=== PATIENT | female | born 1965 | race Caucasian/White ===

== ENCOUNTER → 2016-11-07 | Outpatient (CLI) | payer MEDICAID ==
--- NOTE | 2016-11-07 11:32 | BD ---
EXAMINATION TYPE: MG DEXA axial skeleton. DATE OF EXAM: 11/07/2016 10:50 AM COMPARISON: NONE CLINICAL HISTORY: Height: 5 FT 7 IN Weight: 202 FRAX RISK QUESTIONS: Alcohol (3 or more units per day): YES Family History (Parent hip fracture): NO Glucocorticoids (More than 3mos): NO (Ex: prednisone, prednisolone, methylprednisolone, dexamethasone, and hydrocortisone). History of Fracture in Adulthood: NO Secondary Osteoporosis: 1. Type 1 Diabetes: NO 2. Hyperthyroidism: NO 3. Menopause before 45: NO 4. Malnutrition: NO 5. Chronic liver disease: NO Rheumatoid Arthritis: NO Current Tobacco Use: NO RISK FACTORS HISTORY OF: Drink Alcohol: YES Active: YES Postmenopausal woman: PART HYST AGE 39 MEDICATIONS: Additional Medications: LISINOPRIL,HYDROCHLOROTHIAZIDE,SIMVASTATIN, ARIMIDEX, Additional History: BREAST CANCER 2016 CHEMO AND RADIATION EXAM MEASUREMENTS: Bone mineral densitometry was performed using the Catarizm System. Bone mineral density as measured about the Lumbar spine is: ----- L1-L4(G/cm2): 1.387 T Score Values are as follows: ----- L2: 1.9 ----- L3: 2.0 ----- L4: 2.3 ----- L1-L4: 1.7 Bone mineral density has: BASELINE Bone mineral density about the R hip (g/cm2): 1.064 Bone mineral density about the L hip (g/cm2): 1.144 T Score values are as follows: -----R Neck: 0.2 -----L Neck: 0.8 -----R Intertrochanter: 0.6 -----L Intertrochanter: 1.4 Bone mineral density has: BASELINE IMPRESSION: Normal (Values between +1 and -1 indicate normal bone mass) [facility] NOTE: T-SCORE=SD OF THE YOUNG ADULT MEAN.
== END ==
LOC: RADBDWWP 10:07
PROVIDERS: ATTEND Internal Medicine Hematology & Oncology
DX: C50.919 Malignant neoplasm of unspecified site of unspecified female breast (principal)
CPT/HCPCS: 77080

== ENCOUNTER → 2017-03-21 | Outpatient (CLI) | payer MEDICAID ==
--- NOTE | 2017-03-24 09:19 | MM ---
Reason for exam: follow-up at short interval from prior study. Last mammogram was performed 1 year ago. History: Patient is postmenopausal, has history of breast cancer at age 50, and has history of other cancer at age 28. Family history of breast cancer in maternal aunt. Malignant MG pre op needle loc RT of the right breast, March 22, 2016. Malignant US biopsy breast VAD RT of the right breast, March 08, 2016. Physical Findings: Nurse did not find any significant physical abnormalities on exam. MG 3D Diag Mammo W/Cad REBECCA Bilateral CC and MLO view(s) were taken. Prior study comparison: March 08, 2016, right breast MG diagnostic mammo RT wo CAD. March 05, 2016, bilateral MG 3d diag mammo wo cad REBECCA. The breast tissue is heterogeneously dense. This may lower the sensitivity of mammography. Post surgical changes in the right breast. No significant new findings when compared with previous films. These results were verbally communicated with the patient and result sheet given to the patient on 03/21/17. ASSESSMENT: Benign, BI-RAD 2 RECOMMENDATION: Routine screening mammogram of both breasts in 1 year.
== END | disposition home or self-care (01) ==
LOC: RADMAMWWP 08:50
PROVIDERS: ATTEND Radiology Radiation Oncology
DX: Z09 Encounter for follow-up examination after completed treatment for conditions other than malignant neoplasm (principal); Z85.3 Personal history of malignant neoplasm of breast
CPT/HCPCS: G0204; G0279

== ENCOUNTER 2017-07-02 15:00 | Inpatient (IN) | payer MEDICAID ==
--- NOTE | 2017-07-02 14:34 | CT ---
EXAMINATION TYPE: CT abdomen pelvis w con DATE OF EXAM: 07/02/2017 COMPARISON: NONE HISTORY: Diverticulitis CT DLP: 1523.8 mGycm Automated exposure control for dose reduction was used. CONTRAST: CT scan of the abdomen pelvis is performed with IV Contrast, patient injected with 100 mL of Omnipaqu e 300. FINDINGS- LUNG BASES- No significant abnormality is appreciated. LIVER/GB- No gross abnormality is appreciated. PANCREAS- No gross abnormality is seen. SPLEEN- No gross abnormality is seen. ADRENALS- No gross abnormality is seen. KIDNEYS/BLADDER- no hydronephrosis nephrolithiasis or renal mass. BOWEL-there is significant pericolonic inflammation involving the sigmoid colon and left colon. No ev idence of abscess. Adjacent diverticula noted in the finding is most likely related to diverticulitis . There is a cyst trace amount of free fluid in the pelvis. Follow up to resolution recommended to ex clude underlying mucosal lesion. LYMPH NODES- No greater than 1cm abdominal or pelvic lymph nodes are appreciated. OSSEOUS STRUCTURES-mild hypertrophic changes noted. There is a vague osseous lesion of L1 which is no nspecific may be related to small hemangioma. OTHER- aorta of normal caliber. No definite free air. IMPRESSION- 1. Significant amount of pericolonic inflammation involving the sigmoid colon and left colon with adj acent diverticula in a pattern most typical of acute diverticulitis with no evidence of abscess. Trac e amount of free fluid in the pelvis. Follow to resolution to exclude underlying mucosal lesion.
[2017-07-02] MEDS ORDERED: PANTOPRAZOLE 40 MG/10 ML VIAL IVP STA (15:15)
[2017-07-02] MEDS ORDERED: SODIUM CHLORIDE 0.9% 1,000 ML IV STA (15:15)
[2017-07-02] MEDS ORDERED: MORPHINE SULFATE 10 MG/ML SYRINGE IV STA (15:15)
[2017-07-02] MEDS ORDERED: ONDANSETRON 4 MG/2 ML VIAL IVP STA (15:15)
--- NOTE | 2017-07-02 15:18 | ED ---
General Adult HPI - General Chief complaint: Abdominal Pain Time Seen by Provider: 07/02/17 15:14 Source: patient, RN notes reviewed Mode of arrival: wheelchair Limitations: no limitations - History of Present Illness Initial comments: Patient is a pleasant 51-year-old female presenting to the emergency department with abdominal discomfort. Patient had some symptoms close to 2 weeks ago. Symptoms seem to worsen the last few days. Patient has had some chills and nausea. No vomiting. Patient has abdominal discomfort, mostly left lower abdomen. No constipation or diarrhea or mucus or blood. Patient did have outpatient computed tomography scan done and patient was advised to come to the emergency department. - Related Data Home Medications Medication Instructions Recorded Confirmed Hydrochlorothiazide [Hydrodiuril] 25 mg PO QAM 03/19/16 07/02/17 Lisinopril [Zestril] 10 mg PO QAM 03/19/16 07/02/17 Montelukast [Singulair] 10 mg PO QAM 03/19/16 07/02/17 Simvastatin [Simvastatin] 20 mg PO QAM 03/19/16 07/02/17 Anastrozole [Arimidex] 1 mg PO DAILY 07/02/17 07/02/17 Ciprofloxacin HCl [Cipro] 500 mg PO Q12HR 07/02/17 07/02/17 metroNIDAZOLE [Flagyl] 500 mg PO Q8H 07/02/17 07/02/17 Allergies Allergy/AdvReac Type Severity Reaction Status Date / Time No Known Allergies Allergy Verified 07/02/17 15:05 Review of Systems ROS Statement: Those systems with pertinent positive or pertinent negative responses have been documented in the HPI. ROS Other: All systems not noted in ROS Statement are negative. Constitutional: Reports: chills Eyes: Denies: eye pain ENT: Denies: ear pain Respiratory: Denies: cough Cardiovascular: Denies: chest pain Endocrine: Denies: fatigue Gastrointestinal: Reports: abdominal pain, nausea. 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 History of Any Multi-Drug Resistant Organisms: None Reported Past Surgical History: Hysterectomy Additional Past Surgical History / Comment(s): D & C, RIGHT BREAST BX. Past Anesthesia/Blood Transfusion Reactions: No Reported Reaction Past Psychological History: No Psychological Hx Reported Smoking Status: Never smoker Past Alcohol Use History: Occasional Past Drug Use History: None Reported - Past Family History Mother Family Medical History: No Reported History General Exam Limitations: no limitations General appearance: alert Head exam: Present: atraumatic Eye exam: Present: normal appearance, PERRL ENT exam: Present: normal oropharynx Neck exam: Present: normal inspection Respiratory exam: Present: normal lung sounds bilaterally Cardiovascular Exam: Present: regular rate, normal rhythm Expanded Peripheral pulses: 2+: Dorsalis Pedis (R), Dorsalis Pedis (L) GI/Abdominal exam: Present: soft, tenderness (Moderate tenderness left lower quadrant. Mild diffuse tenderness.), guarding, normal bowel sounds. Absent: distended, rebound, rigid, pulsatile mass Extremities exam: Present: normal inspection. Absent: pedal edema, calf tenderness Neurological exam: Present: alert Psychiatric exam: Present: normal affect, normal mood Skin exam: Present: normal color Course Vital Signs 07/02/17 07/02/17 14:56 15:55 Temperature 99.2 F Pulse Rate 78 91 Respiratory 18 18 Rate Blood Pressure 159/92 144/99 O2 Sat by Pulse 97 99 Oximetry Medical Decision Making - Medical Decision Making Case was discussed with Dr. Ellis, who will admit for Dr. Mathews. Consult with GI. Box and Karli. - Lab Data Result diagrams: 07/02/17 15:28 07/02/17 15:28 Lab Results 07/02/17 07/02/17 07/02/17 Range/Units 15:28 15:28 15:28 WBC 11.3 H (3.8-10.6) k/uL RBC 4.28 (3.80-5.40) m/uL Hgb 12.8 (11.4-16.0) gm/dL Hct 38.1 (34.0-46.0) % MCV 89.1 (80.0-100.0) fL MCH 29.8 (25.0-35.0) pg MCHC 33.5 (31.0-37.0) g/dL RDW 12.8 (11.5-15.5) % Plt Count 324 (150-450) k/uL Neutrophils % 74 % Lymphocytes % 11 % Monocytes % 11 % Eosinophils % 0 % Basophils % 0 % Neutrophils # 8.3 H (1.3-7.7) k/uL Lymphocytes # 1.2 (1.0-4.8) k/uL Monocytes # 1.2 H (0-1.0) k/uL Eosinophils # 0.1 (0-0.7) k/uL Basophils # 0.0 (0-0.2) k/uL PT (9.0-12.0) sec INR (<1.2) APTT (22.0-30.0) sec Sodium 136 L (137-145) mmol/L Potassium 3.7 (3.5-5.1) mmol/L Chloride 101 (98-107) mmol/L Carbon Dioxide 25 (22-30) mmol/L Anion Gap 10 mmol/L BUN 13 (7-17) mg/dL Creatinine 0.60 (0.52-1.04) mg/dL Est GFR (MDRD) Af Amer >60 (>60 ml/min/1.73 sqM) Est GFR (MDRD) Non-Af >60 (>60 ml/min/1.73 sqM) Glucose 84 (74-99) mg/dL Plasma Lactic Acid Karlo 0.6 L (0.7-2.0) mmol/L Calcium 9.6 (8.4-10.2) mg/dL Total Bilirubin 0.9 (0.2-1.3) mg/dL AST 13 L (14-36) U/L ALT 29 (9-52) U/L Alkaline Phosphatase 106 (38-126) U/L Total Protein 6.8 (6.3-8.2) g/dL Albumin 3.8 (3.5-5.0) g/dL Amylase 34 (30-110) U/L Lipase 65 (23-300) U/L Urine Color Urine Appearance (Clear) Urine pH (5.0-8.0) Ur Specific [place] (1.001-1.035) Urine Protein (Negative) Urine Glucose (UA) (Negative) Urine Ketones (Negative) Urine Blood (Negative) Urine Nitrite (Negative) Urine Bilirubin (Negative) Urine Urobilinogen (<2.0) mg/dL Ur Leukocyte Esterase (Negative) Urine WBC (0-5) /hpf Ur Squamous Epith Cells (0-4) /hpf Urine Bacteria (None) /hpf 07/02/17 07/02/17 Range/Units 15:28 15:28 WBC (3.8-10.6) k/uL RBC (3.80-5.40) m/uL Hgb (11.4-16.0) gm/dL Hct (34.0-46.0) % MCV (80.0-100.0) fL MCH (25.0-35.0) pg MCHC (31.0-37.0) g/dL RDW (11.5-15.5) % Plt Count (150-450) k/uL Neutrophils % % Lymphocytes % % Monocytes % % Eosinophils % % Basophils % % Neutrophils # (1.3-7.7) k/uL Lymphocytes # (1.0-4.8) k/uL Monocytes # (0-1.0) k/uL Eosinophils # (0-0.7) k/uL Basophils # (0-0.2) k/uL PT 12.2 H (9.0-12.0) sec INR 1.2 H (<1.2) APTT 24.3 (22.0-30.0) sec Sodium (137-145) mmol/L Potassium (3.5-5.1) mmol/L Chloride (98-107) mmol/L Carbon Dioxide (22-30) mmol/L Anion Gap mmol/L BUN (7-17) mg/dL Creatinine (0.52-1.04) mg/dL Est GFR (MDRD) Af Amer (>60 ml/min/1.73 sqM) Est GFR (MDRD) Non-Af (>60 ml/min/1.73 sqM) Glucose (74-99) mg/dL Plasma Lactic Acid Karlo (0.7-2.0) mmol/L Calcium (8.4-10.2) mg/dL Total Bilirubin (0.2-1.3) mg/dL AST (14-36) U/L ALT (9-52) U/L Alkaline Phosphatase (38-126) U/L Total Protein (6.3-8.2) g/dL Albumin (3.5-5.0) g/dL Amylase (30-110) U/L Lipase (23-300) U/L Urine Color Colorless Urine Appearance Clear (Clear) Urine pH 6.0 (5.0-8.0) Ur Specific [place] 1.022 (1.001-1.035) Urine Protein Negative (Negative) Urine Glucose (UA) Negative (Negative) Urine Ketones Negative (Negative) Urine Blood Negative (Negative) Urine Nitrite Negative (Negative) Urine Bilirubin Negative (Negative) Urine Urobilinogen <2.0 (<2.0) mg/dL Ur Leukocyte Esterase Trace H (Negative) Urine WBC 8 H (0-5) /hpf Ur Squamous Epith Cells 7 H (0-4) /hpf Urine Bacteria Rare H (None) /hpf - Radiology Data Radiology results: report reviewed Disposition Clinical Impression: Diverticulitis Disposition: ADMITTED IP TO THIS [facility] Referrals: Adam Cornell MD [STAFF PHYSICIAN] - 1-2 days Decision Time: 16:18
[2017-07-02 15:42] LABS: Basophils % (A) 0 %; CH 30.4; CHCM 34.3; Eosinophils # (A) 0.1 k/uL (0-0.7); Eosinophils % (A) 0 %; HCT 38.1 % (34.0-46.0); HDW 2.62; HGB 12.8 gm/dL (11.4-16.0); Luc # (Auto) 0.46; Luc % (Auto) 4; Lymphocytes # (A) 1.2 k/uL (1.0-4.8); Lymphocytes % (A) 11 %; MCH 29.8 pg (25.0-35.0); MCHC 33.5 g/dL (31.0-37.0); MCV 89.1 fL (80.0-100.0); Mean Platelet Volume 6.6; Monocytes # (A) 1.2 k/uL (0-1.0); Monocytes % (A) 11 %; Neutrophils # (A) 8.3 k/uL (1.3-7.7); Neutrophils % (A) 74 %; RBC 4.28 m/uL (3.80-5.40); RDW 12.8 % (11.5-15.5); WBC 11.3 k/uL (3.8-10.6); WBC (Perox) 11.13
[2017-07-02 15:50] LABS: ALT 29 U/L (9-52); AST 13 U/L (14-36); Alkaline Phosphatase 106 U/L (38-126); Amylase 34 U/L (30-110); Anion Gap 10 mmol/L; Blood Urea Nitrogen 13 mg/dL (7-17); Calcium 9.6 mg/dL (8.4-10.2); Carbon Dioxide 25 mmol/L (22-30); Chloride 101 mmol/L (98-107); Glucose 84 mg/dL (74-99); Non-African American GFR(MDRD) >60 (>60 ml/min/1.73 sqM); Potassium 3.7 mmol/L (3.5-5.1); Sodium 136 mmol/L (137-145); Total Bilirubin 0.9 mg/dL (0.2-1.3); Total Protein 6.8 g/dL (6.3-8.2)
[2017-07-02 15:52] LABS: Appearance,Urine Clear (Clear); Bacteria,Urine Rare /hpf; Bilirubin,Urine Negative (Negative); Glucose,Urine (UA) Negative (Negative); Ketones,Urine Negative (Negative); Leukocyte Esterase,Urine Trace (Negative); Nitrite,Urine Negative (Negative); Particle Count 882; Protein,Urine Negative (Negative); Specific Gravity,Urine 1.022 (1.001-1.035); Squamous Epithelial Cell,Urine 7 /hpf (0-4); UA Billing (MACRO vs. MICRO) MICRO; Urobilinogen,Urine <2.0 mg/dL (<2.0); WBC,Urine 8 /hpf (0-5)
[2017-07-02 15:54] LABS: INR 1.2 (<1.2); Partial Thromboplastin Time 24.3 sec (22.0-30.0); Prothrombin Time 12.2 sec (9.0-12.0)
[2017-07-02] MEDS ORDERED: NALOXONE 0.4 MG/ML 1 ML VIAL IV PRN (16:18)
[2017-07-02] MEDS ORDERED: MORPHINE SULFATE 10 MG/ML SYRINGE IV PRN (16:18)
[2017-07-02] MEDS ORDERED: LEVOFLOXACIN 750MG-D5W PMX 750 MG in DEXTROSE/WATER 1 150ML.BAG IVPB STA (16:20)
[2017-07-02] MEDS: SODIUM CHLORIDE 0.9% 1,000 ML IV SCH ×2 (16:52→23:43)
--- NOTE | 2017-07-02 17:49 | P.HPIM ---
History of Present Illness H&P Date: 07/02/17 Chief Complaint: abdominal pain Ms Morrow patient of of Dr. Mathews with past medical history of breast cancer status post chemo and radiation, hyperlipidemia, hypertension, asthma presents with increasing abdominal pain for the past 3 days. Patient saw her primary care physician yesterday who recommended antibiotics including ciprofloxacin and Flagyl. Since abdominal pain did not improve and patient was endorsing nausea, CT abdomen was ordered which suggested significant amount of pericolonic inflammation including sigmoid colon and the left colon suggestive of acute diverticulitis. Patient endorses 8/10 pain in the left upper quadrant and lower quadrant worsening with movement, constant agonizing in character. Patient denies any fever but endorses chills and nausea. She had no bowel movement for the past 4 days. Denies any fever previous history of similar complaints. Vitals are stable, afebrile blood pressure 159/92 pulse rate 78. CBC suggest WBC of 11.3, INR 1.2, sodium of 136 with no sign of infection on urinalysis. Patient was started on levofloxacin and Flagyl and IV fluids were started, gastroenterology consulted, patient would need pain control with IV pain medication. Review of Systems Constitutional: Denies chills, Denies fever, Denies lethargy, Denies malaise, Denies poor appetite, Denies weakness, Denies weight loss Eyes: denies decreased vision, denies diplopia, denies discharge, denies pain Ears: deny: decreased hearing Ears, nose, mouth and throat: Denies dental pain, Denies headache, Denies nasal discharge, Denies nose pain Cardiovascular: Denies chest pain, Denies decreased exercise tolerance, Denies edema, Denies high blood pressure, Denies irregular heart beat, Denies palpitations, Denies paroxysmal nocturnal dyspnea, Denies rapid heart beat, Denies shortness of breath Respiratory: Denies congestion, Denies cough, Denies cough with sputum, Denies dyspnea, Denies home oxygen, Denies wheezing Gastrointestinal: Endorses abdominal pain, endorses change in bowel habits, Denies coffee ground emesis, Denies early satiety, Denies excessive gas, Denies heartburn, Denies hematemesis, Denies hematochezia, Denies loss of appetite, endorses nausea, Denies vomiting Genitourinary: Denies dysuria, Denies flank pain, Denies kidney stones, Denies menorrhagia, Denies urgency, Denies urinary frequency Musculoskeletal: Denies gait dysfunction, Denies limitation of motion, Denies morning stiffness, Denies muscle cramps Integumentary: Denies rash, Denies wounds, Denies brittle nails, Denies change in hair/nails, Denies darkening of skin Neurological: Denies balance difficulties, Denies change in speech, Denies double vision, Denies gait dysfunction, Denies loss of vision, Denies motor disturbance, Denies numbness, Denies paralysis, Denies paresthesias, Denies seizures Psychiatric: Denies anxiety, Denies depression Endocrine: Denies excessive sweating, Denies excessive thirst, Denies high blood sugars, Denies palpitations Hematologic/Lymphatic: Denies easy bruising, Denies lymphadenopathy Past Medical History Past Medical History: Asthma, Cancer, Hyperlipidemia, Hypertension Additional Past Medical History / Comment(s): MELANOMA ON LEG (1993), RIGHT BREAST CANCER. History of Any Multi-Drug Resistant Organisms: None Reported Past Surgical History: Hysterectomy Additional Past Surgical History / Comment(s): D & C, RIGHT BREAST BX. Past Anesthesia/Blood Transfusion Reactions: No Reported Reaction Past Psychological History: No Psychological Hx Reported Smoking Status: Never smoker Past Alcohol Use History: Occasional Past Drug Use History: None Reported - Past Family History Mother Family Medical History: No Reported History Additional Family Medical History / Comment(s): Grandfather had lung cancer and bone cancer, no significant medical history in mother and father. Siblings with no significant medical problems. Patient has a son with no medical problems Medications and Allergies Home Medications Medication Instructions Recorded Confirmed Type Hydrochlorothiazide [Hydrodiuril] 25 mg PO QAM 03/19/16 07/02/17 History Lisinopril [Zestril] 10 mg PO QAM 03/19/16 07/02/17 History Montelukast [Singulair] 10 mg PO QAM 03/19/16 07/02/17 History Simvastatin [Simvastatin] 20 mg PO QAM 03/19/16 07/02/17 History Anastrozole [Arimidex] 1 mg PO DAILY 07/02/17 07/02/17 History Ciprofloxacin HCl [Cipro] 500 mg PO Q12HR 07/02/17 07/02/17 History metroNIDAZOLE [Flagyl] 500 mg PO Q8H 07/02/17 07/02/17 History Allergies Allergy/AdvReac Type Severity Reaction Status Date / Time No Known Allergies Allergy Verified 07/02/17 15:05 Physical Exam Vitals: Vital Signs Temp Pulse Resp BP Pulse Ox 07/02/17 17:26 98.7 F 87 18 131/76 98 07/02/17 16:54 98.7 F 87 18 131/76 98 07/02/17 15:55 91 18 144/99 99 07/02/17 14:56 99.2 F 78 18 159/92 97 Intake and Output 07/02/17 07/02/17 07/02/17 06:59 14:59 22:59 Other: Weight 89.358 kg Patient Weight 07/03/17 06:59 Weight 89.358 kg - Constitutional General appearance: cooperative, no acute distress, obese - EENT Eyes: anicteric sclerae, PERRLA, normal appearance ENT: hearing grossly normal - Neck Neck: no lymphadenopathy, normal ROM, no other, no rigidity, no stridor, no thyromegaly - Respiratory Respiratory: bilateral: CTA, negative: diminished, dullness, rales, rhonchi - Cardiovascular Rhythm: regular Heart sounds: normal: S1, S2 Abnormal Heart Sounds: no systolic murmur, no diastolic murmur, no rub, no S3 Gallop, no S4 Gallop, no click, no other - Gastrointestinal General gastrointestinal: Diffuse tenderness most prominent in the left upper and lower quadrant, soft not distended - Integumentary Integumentary: no rash - Neurologic Neurologic: CNII-XII intact - Musculoskeletal Musculoskeletal: gait normal, strength equal bilaterally - Psychiatric Psychiatric: A&O x's 3, appropriate affect Results CBC & Chem 7: 07/02/17 15:28 07/02/17 15:28 Labs: Abnormal Lab Results - Last 24 Hours (Table) 07/02/17 07/02/17 07/02/17 Range/Units 15:28 15:28 15:28 WBC 11.3 H (3.8-10.6) k/uL Neutrophils # 8.3 H (1.3-7.7) k/uL Monocytes # 1.2 H (0-1.0) k/uL PT (9.0-12.0) sec INR (<1.2) Sodium 136 L (137-145) mmol/L Plasma Lactic Acid Karlo 0.6 L (0.7-2.0) mmol/L AST 13 L (14-36) U/L Ur Leukocyte Esterase (Negative) Urine WBC (0-5) /hpf Ur Squamous Epith Cells (0-4) /hpf Urine Bacteria (None) /hpf 07/02/17 07/02/17 Range/Units 15:28 15:28 WBC (3.8-10.6) k/uL Neutrophils # (1.3-7.7) k/uL Monocytes # (0-1.0) k/uL PT 12.2 H (9.0-12.0) sec INR 1.2 H (<1.2) Sodium (137-145) mmol/L Plasma Lactic Acid Karlo (0.7-2.0) mmol/L AST (14-36) U/L Ur Leukocyte Esterase Trace H (Negative) Urine WBC 8 H (0-5) /hpf Ur Squamous Epith Cells 7 H (0-4) /hpf Urine Bacteria Rare H (None) /hpf Thrombosis Risk Factor Assmnt - DVT/VTE Prophylaxis DVT/VTE Prophylaxis: Pharmacologic Prophylaxis ordered, Mechanical Prophylaxis ordered Assessment and Plan Plan: 1. Acute Diverticulitis - CT abdomen suggestive of acute diverticulitis, continue antibiotics on levofloxacin and metronidazole, NS 125 cc/hr, clear liquid diet, gastroenterology consult 2. HTN - Continue lisinopril and HCTZ 3. HLD- Continue Simvastain 4. Breast cancer s/p chemoradiation - continue anastrozole 5. Asthma- stable 6. DVT prophylaxis- on Lovenox subcu 40 daily- 7. GI prophylaxis- Pepcid 20 mg twice daily Full code Patient may stay 2 inpatient nights in the hospital
[2017-07-02] MEDS: HYDROmorphone 1 MG/ML 1 ML SYRINGE IVP PRN ×2 (18:24→23:39)
[2017-07-02] MEDS: FAMOTIDINE 20 MG TAB PO SCH (20:10)
[2017-07-02] MEDS: metroNIDAZOLE 500 MG TAB PO SCH ×2 (20:10→23:39)
[2017-07-03] MEDS: HYDROmorphone 1 MG/ML 1 ML SYRINGE IVP PRN ×2 (03:26→07:04)
[2017-07-03] MEDS: SODIUM CHLORIDE 0.9% 1,000 ML IV SCH (07:05)
[2017-07-03] MEDS ORDERED: PANTOPRAZOLE 40 MG/10 ML VIAL IV SCH (09:00)
[2017-07-03] MEDS: ONDANSETRON 4 MG/2 ML VIAL IVP PRN ×2 (09:22→17:05)
[2017-07-03] MEDS: ENOXAPARIN 40 MG/0.4 ML SYRINGE SQ SCH (09:27)
[2017-07-03] MEDS: MONTELUKAST 10 MG TAB PO SCH (09:29)
[2017-07-03] MEDS: metroNIDAZOLE 500 MG TAB PO SCH ×4 (09:29→22:05)
[2017-07-03] MEDS: LISINOPRIL 10 MG TAB PO SCH (09:29)
[2017-07-03] MEDS: ATORVASTATIN 10 MG TAB PO SCH (09:29)
[2017-07-03] MEDS: HYDROCHLOROTHIAZIDE 25 MG TAB PO SCH (09:29)
[2017-07-03] MEDS: ANASTROZOLE 1 MG TAB PO SCH (09:30)
[2017-07-03] MEDS: FAMOTIDINE 20 MG TAB PO SCH ×2 (09:30→20:31)
[2017-07-03] MEDS: HYDROmorphone 2 MG/ML 1 ML SYRINGE IVP PRN ×4 (11:15→22:32)
--- NOTE | 2017-07-03 12:28 | CONS ---
CONSULTATION DATE OF SERVICE: 07/03/2017 REASON FOR CONSULTATION: Acute sigmoid diverticulitis. HISTORY OF PRESENT ILLNESS: The patient is a 51-year-old pleasant white female who was admitted to the hospital because of acute onset of left lower quadrant abdominal pain for the last 3 days duration. The patient started having discomfort more in the suprapubic area in the left lower quadrant area and was given outpatient antibiotics with Cipro and Flagyl by her PCP. However, the pain continued to progressively get worse and hence came to the emergency room yesterday and she subsequently had a CT of the abdomen and pelvis done that showed pericolonic inflammation in the sigmoid colon suggestive of acute sigmoid diverticulitis. Presently, she is on IV Levaquin and Flagyl. She feels a little bit better this morning. She has had some diffuse lower abdominal discomfort, some nausea, but no emesis. On a clear liquid diet, tolerating well. She denies any diarrhea. No change in her bowel habits. Never had similar symptoms in the past. She reports no fever, chills, or night sweats. She recalls having a colonoscopy about 5 or 6 years ago that was unremarkable. PAST MEDICAL HISTORY: Her past medical history is significant for breast cancer, hypertension, hyperlipidemia, asthma. PAST SURGICAL HISTORY: Hysterectomy, right breast surgery, melanoma on the leg for which she had surgery done, D&C, colonoscopy about 5 or 6 years ago. MEDICATIONS: Medications at home, Zestril, HydroDIURIL, Singulair, simvastatin, Arimidex, Cipro, Flagyl. ALLERGIES: No known drug allergies. SOCIAL HISTORY: No smoking. No alcohol use. FAMILY HISTORY: Mother unremarkable. Grandfather had some lung cancer. REVIEW OF SYSTEMS: CARDIOPULMONARY: No chest pain, shortness of breath. GENITOURINARY: No dysuria or hematuria. MUSCULOSKELETAL: Unremarkable. SKIN: Unremarkable. ENDOCRINE: Unremarkable. PSYCHIATRY: Unremarkable. NEUROLOGY: Unremarkable. ENT/VISION: Unremarkable. CONSTITUTIONAL: No recent weight loss. No fever, chills, night sweats. PHYSICAL EXAMINATION: On physical examination, she appears comfortable. No apparent distress. Vital signs are stable. Blood pressure 120/85, pulse 86, temperature 96.8. HEENT examination is unremarkable. Conjunctivae pink. Sclerae anicteric. Oral cavity, no lesions. NECK: No JVD or lymph node enlargement. Chest was clear to auscultation. HEART: Regular rate and rhythm. ABDOMEN: Soft. There was tenderness in the left lower quadrant area. There was mild tenderness in the suprapubic area, mild tenderness in the right lower quadrant area. EXTREMITIES: No pedal edema. SKIN: No rashes. NEURO: Alert and oriented x3. No focal deficits. LABS: Done at the time of admission to the hospital, WBC 11.5, hemoglobin 12.8, platelets are normal. Basic metabolic panel is within normal limits. IMPRESSION: This is a lady who presents with acute onset of left lower quadrant abdominal pain for the last 3 to 4 days duration, was treated empirically with antibiotics on outpatient basis with Cipro and Flagyl, but continued to have persistent symptoms, hence, admitted to the hospital with acute sigmoid diverticulitis. CAT scan of the abdomen done at the time of admission to the hospital yesterday afternoon did show pericolonic inflammation in the sigmoid colon suggestive of acute sigmoid diverticulitis, but there was no evidence of abscess seen. Presently on IV Levaquin and Flagyl and her symptoms are gradually improving. RECOMMENDATIONS: 1. Continue with current antibiotics. 2. Continue with a clear liquid diet. 3. If her symptoms improve tomorrow, we will start to advance the diet gradually. 4. I discussed with the patient the need for a colonoscopy on an outpatient basis once her diverticulitis is resolved, probably in the next 4 to 6 weeks. 5. We will follow her closely during her hospital stay. Thank you for this consultation. MMODL / IJN: [id number] /
[2017-07-03] MEDS ORDERED: MORPHINE SULFATE 4 MG/ML SYRINGE IV PRN (14:33)
[2017-07-03 15:11] VITALS: BMI 30.8
--- NOTE | 2017-07-03 15:38 | P.PN ---
Subjective Progress Note Date: 07/03/17 Ms Morrow patient of of Dr. Mathews with past medical history of breast cancer status post chemo and radiation, hyperlipidemia, hypertension, asthma presents with increasing abdominal pain for the past 3 days. Patient saw her primary care physician yesterday who recommended antibiotics including ciprofloxacin and Flagyl. Since abdominal pain did not improve and patient was endorsing nausea, CT abdomen was ordered which suggested significant amount of pericolonic inflammation including sigmoid colon and the left colon suggestive of acute diverticulitis. Patient endorses 8/10 pain in the left upper quadrant and lower quadrant worsening with movement, constant agonizing in character. Patient denies any fever but endorses chills and nausea. She had no bowel movement for the past 4 days. Denies any fever previous history of similar complaints. Vitals are stable, afebrile blood pressure 159/92 pulse rate 78. CBC suggest WBC of 11.3, INR 1.2, sodium of 136 with no sign of infection on urinalysis. Patient was started on levofloxacin and Flagyl and IV fluids were started, gastroenterology consulted, patient would need pain control with IV pain medication. 07/03: Patient has tolerated clear liquids. No vomiting but she did have nausea this morning and no bowel movement. She has been seen by Dr. Sims with recommendations to continue clear liquids and antibiotics. Plan is for outpatient colonoscopy in 4-6 weeks. Diet will be gradually advanced. IV fluids discontinued Objective - Vital Signs Vital signs: Vital Signs Temp 97.7 F 07/03/17 07:00 Pulse 83 07/03/17 07:00 Resp 16 07/03/17 07:00 BP 115/75 07/03/17 07:00 Pulse Ox 98 07/03/17 07:00 Intake & Output 07/02/17 07/03/17 07/03/17 18:59 06:59 18:59 Intake Total 1320 Balance 1320 Weight 89.358 kg Intake: Intake, IV Titration 1320 Amount Sodium Chloride 0.9% 1, 1320 000 ml @ 120 mls/hr IV . Q8H20M [facility] Rx#:[id number] Other: Voiding Method Toilet # Voids 1 - Exam General appearance: cooperative, no acute distress, obese - EENT Eyes: anicteric sclerae, PERRLA, normal appearance ENT: hearing grossly normal - Neck Neck: no lymphadenopathy, normal ROM, no other, no rigidity, no stridor, no thyromegaly - Respiratory Respiratory: bilateral: CTA, negative: diminished, dullness, rales, rhonchi - Cardiovascular Rhythm: regular Heart sounds: normal: S1, S2 Abnormal Heart Sounds: no systolic murmur, no diastolic murmur, no rub, no S3 Gallop, no S4 Gallop, no click, no other - Gastrointestinal General gastrointestinal: Diffuse tenderness most prominent in the left upper and lower quadrant, soft not distended - Integumentary Integumentary: no rash - Neurologic Neurologic: CNII-XII intact - Musculoskeletal Musculoskeletal: gait normal, strength equal bilaterally - Psychiatric Psychiatric: A&O x's 3, appropriate affect - Labs CBC & Chem 7: 07/02/17 15:28 07/02/17 15:28 Labs: Abnormal Lab Results - Last 24 Hours (Table) 07/02/17 07/02/17 07/02/17 Range/Units 15:28 15:28 15:28 WBC 11.3 H (3.8-10.6) k/uL Neutrophils # 8.3 H (1.3-7.7) k/uL Monocytes # 1.2 H (0-1.0) k/uL PT (9.0-12.0) sec INR (<1.2) Sodium 136 L (137-145) mmol/L Plasma Lactic Acid Karlo 0.6 L (0.7-2.0) mmol/L AST 13 L (14-36) U/L Ur Leukocyte Esterase (Negative) Urine WBC (0-5) /hpf Ur Squamous Epith Cells (0-4) /hpf Urine Bacteria (None) /hpf 07/02/17 07/02/17 Range/Units 15:28 15:28 WBC (3.8-10.6) k/uL Neutrophils # (1.3-7.7) k/uL Monocytes # (0-1.0) k/uL PT 12.2 H (9.0-12.0) sec INR 1.2 H (<1.2) Sodium (137-145) mmol/L Plasma Lactic Acid Karlo (0.7-2.0) mmol/L AST (14-36) U/L Ur Leukocyte Esterase Trace H (Negative) Urine WBC 8 H (0-5) /hpf Ur Squamous Epith Cells 7 H (0-4) /hpf Urine Bacteria Rare H (None) /hpf Assessment and Plan Plan: 1. Acute Diverticulitis - CT abdomen suggestive of acute diverticulitis, continue antibiotics on levofloxacin and metronidazole, clear liquid diet to full liquid, gastroenterology consult appreciated 2. HTN - Continue lisinopril and HCTZ 3. HLD- Continue Simvastain 4. Breast cancer s/p chemoradiation - continue anastrozole 5. Asthma- stable 6. DVT prophylaxis- on Lovenox subcu 40 daily- 7. GI prophylaxis- Pepcid 20 mg twice daily Full code Discharge plan: Home Impression and plan of care have been directed as dictated by the signing physician. Iris Jerez nurse practitioner acting as scribe for signing physician.
[2017-07-03] MEDS ORDERED: LEVOFLOXACIN 750MG-D5W PMX 750 MG in DEXTROSE/WATER 1 150ML.BAG IVPB SCH (16:00)
[2017-07-04 07:00] VITALS: BP 140/88; PULSE 74; RESP 14; TEMP 97.2
[2017-07-04] MEDS: HYDROmorphone 2 MG/ML 1 ML SYRINGE IVP PRN (07:20)
[2017-07-04 07:40] LABS: Basophils % (A) 0 %; CH 29.6; CHCM 32.6; Eosinophils # (A) 0.1 k/uL (0-0.7); Eosinophils % (A) 1 %; HCT 34.4 % (34.0-46.0); HDW 2.57; HGB 11.2 gm/dL (11.4-16.0); Luc # (Auto) 0.21; Luc % (Auto) 3; Lymphocytes # (A) 1.1 k/uL (1.0-4.8); Lymphocytes % (A) 18 %; MCH 29.8 pg (25.0-35.0); MCHC 32.6 g/dL (31.0-37.0); MCV 91.3 fL (80.0-100.0); Mean Platelet Volume 7.5; Monocytes # (A) 0.7 k/uL (0-1.0); Monocytes % (A) 11 %; Neutrophils # (A) 4.1 k/uL (1.3-7.7); Neutrophils % (A) 67 %; RBC 3.77 m/uL (3.80-5.40); RDW 13.8 % (11.5-15.5); WBC 6.2 k/uL (3.8-10.6); WBC (Perox) 6.62
[2017-07-04 07:46] LABS: ALT 30 U/L (9-52); AST 11 U/L (14-36); Alkaline Phosphatase 77 U/L (38-126); Anion Gap 6 mmol/L; Blood Urea Nitrogen 11 mg/dL (7-17); Calcium 9.5 mg/dL (8.4-10.2); Carbon Dioxide 27 mmol/L (22-30); Chloride 105 mmol/L (98-107); Glucose 91 mg/dL (74-99); Non-African American GFR(MDRD) >60 (>60 ml/min/1.73 sqM); Potassium 3.9 mmol/L (3.5-5.1); Sodium 138 mmol/L (137-145); Total Bilirubin 0.2 mg/dL (0.2-1.3); Total Protein 5.9 g/dL (6.3-8.2)
[2017-07-04] MEDS: FAMOTIDINE 20 MG TAB PO SCH (08:05)
[2017-07-04] MEDS: ANASTROZOLE 1 MG TAB PO SCH (08:06)
[2017-07-04] MEDS: metroNIDAZOLE 500 MG TAB PO SCH (08:07)
[2017-07-04] MEDS: ATORVASTATIN 10 MG TAB PO SCH (08:07)
[2017-07-04] MEDS: ENOXAPARIN 40 MG/0.4 ML SYRINGE SQ SCH (08:07)
[2017-07-04] MEDS: HYDROCHLOROTHIAZIDE 25 MG TAB PO SCH (08:07)
[2017-07-04] MEDS: LISINOPRIL 10 MG TAB PO SCH (08:07)
[2017-07-04] MEDS: MONTELUKAST 10 MG TAB PO SCH (08:08)
[2017-07-04] MEDS ORDERED: PANTOPRAZOLE 40 MG TABLET PO SCH (09:00)
--- NOTE | 2017-07-04 09:58 | P.PN ---
Subjective Progress Note Date: 07/04/17 Principal diagnosis: Sigmoid diverticulitis Admitted with sigmoid diverticulitis. Afebrile. White count 6.2. Hemoglobin 11.2. Feels better. Nonbloody bowel movement last night. Objective - Vital Signs Vital signs: Vital Signs Temp 97.2 F L 07/04/17 07:00 Pulse 74 07/04/17 07:00 Resp 14 07/04/17 07:00 BP 140/88 07/04/17 07:00 Pulse Ox 98 07/04/17 07:00 Intake & Output 07/03/17 07/04/17 07/04/17 18:59 06:59 18:59 Intake Total 770 Output Total 400 Balance -400 770 Weight 89.358 kg Intake: Intake, IV Titration 770 Amount Sodium Chloride 0.9% 1, 770 000 ml @ 120 mls/hr IV . Q8H20M [facility] Rx#:[id number] Output: Urine 400 Other: Voiding Method Toilet # Voids 2 - Exam General appearance: The patient is alert, oriented, in no acute distress. HET: Head is normocephalic and atraumatic. Pupils are equal and reactive. Oropharynx is clear without lesions. Neck: Supple without lymphadenopathy. Trachea midline. Heart: S1 S2. Regular rate and rhythm. Lungs: No crackles or wheezes are heard. Abdomen: Soft, nontender, nondistended with bowel sounds. No peritoneal signs. No palpable organomegaly or masses. Extremities: Normal skin color and turgor. No cyanosis, rash, ulceration, clubbing, or edema. Radial and pedal pulses are 2/4 bilaterally. Neurological: No focal deficits. Strength and sensation are grossly intact. - Labs CBC & Chem 7: 07/04/17 06:41 07/04/17 06:41 Labs: Abnormal Lab Results - Last 24 Hours (Table) 07/04/17 07/04/17 Range/Units 06:41 06:41 RBC 3.77 L (3.80-5.40) m/uL Hgb 11.2 L (11.4-16.0) gm/dL AST 11 L (14-36) U/L Total Protein 5.9 L (6.3-8.2) g/dL Albumin 3.1 L (3.5-5.0) g/dL Microbiology - Last 24 Hours (Table) 07/02/17 15:28 Blood Culture - Preliminary Blood No Growth after 24 hours Assessment and Plan (1) Diverticulitis Narrative/Plan: Acute sigmoid diverticulitis without abscess or perforation Current Visit: Yes Status: Acute Code(s): K57.92 - DVTRCLI OF INTEST, PART UNSP, W/O PERF OR ABSCESS W/O BLEED SNOMED Code(s): 577570130 Plan: 1. Continue antibiotics on discharge 7-10 days. 2. Light diet as tolerated. 3. Outpatient colonoscopy 4-6 weeks. 4. Discharge per medicine. Assessment and plan a care discussed with Dr. Morejon
--- NOTE | 2017-07-04 14:53 | P.DS ---
Providers Date of admission: 07/02/17 16:18 Expected date of discharge: 07/04/17 Attending physician: Ajay Victoria MD Primary care physician: Howard Mathews [facility] Course: Ms Morrow patient of of Dr. Mathews with past medical history of breast cancer status post chemo and radiation, hyperlipidemia, hypertension, asthma presents with increasing abdominal pain for the past 3 days. Patient saw her primary care physician yesterday who recommended antibiotics including ciprofloxacin and Flagyl. Since abdominal pain did not improve and patient was endorsing nausea, CT abdomen was ordered which suggested significant amount of pericolonic inflammation including sigmoid colon and the left colon suggestive of acute diverticulitis. Patient endorses 8/10 pain in the left upper quadrant and lower quadrant worsening with movement, constant agonizing in character. Patient denies any fever but endorses chills and nausea. She had no bowel movement for the past 4 days. Denies any fever previous history of similar complaints. Vitals are stable, afebrile blood pressure 159/92 pulse rate 78. CBC suggest WBC of 11.3, INR 1.2, sodium of 136 with no sign of infection on urinalysis. Patient was started on levofloxacin and Flagyl and IV fluids were started, gastroenterology consulted, patient would need pain control with IV pain medication. 07/03: Patient has tolerated clear liquids. No vomiting but she did have nausea this morning and no bowel movement. She has been seen by Dr. Sims with recommendations to continue clear liquids and antibiotics. Plan is for outpatient colonoscopy in 4-6 weeks. Diet will be gradually advanced. IV fluids discontinued 07/04: Patient is tolerating diet with some minimal abdominal pain and occasional nausea. She has been seen by GI with plan for follow-up in the outpatient setting an appointment has been made. Patient will be discharged today and continued on oral antibiotics which GERD had at home. She will also be provided with Zofran and Decherd. Patient will be discharged today in stable condition. Discharge diagnoses: 1. Acute Diverticulitis 2. HTN 3. HLD 4. Breast cancer s/p chemoradiation 5. Asthma mild intermittent Discharge plan: Home Impression and plan of care have been directed as dictated by the signing physician. Iris Jerez nurse practitioner acting as scribe for signing physician. Patient Condition at Discharge: Good Plan - Discharge Summary Discharge Rx Participant: Yes New Discharge Prescriptions: New HYDROcodone/APAP 5-325MG [Decherd 5-325] 1 tab PO Q8H PRN #15 tab PRN Reason: Pain Ondansetron [Zofran] 4 mg PO Q8HR PRN #20 tab PRN Reason: Nausea Continue Lisinopril [Zestril] 10 mg PO QAM Hydrochlorothiazide [Hydrodiuril] 25 mg PO QAM Montelukast [Singulair] 10 mg PO QAM Simvastatin 20 mg PO QAM metroNIDAZOLE [Flagyl] 500 mg PO Q8H Ciprofloxacin HCl [Cipro] 500 mg PO Q12HR Anastrozole [Arimidex] 1 mg PO DAILY Discharge Medication List Hydrochlorothiazide [Hydrodiuril] 25 mg PO QAM 03/19/16 [History] Lisinopril [Zestril] 10 mg PO QAM 03/19/16 [History] Montelukast [Singulair] 10 mg PO QAM 03/19/16 [History] Simvastatin 20 mg PO QAM 03/19/16 [History] Anastrozole [Arimidex] 1 mg PO DAILY 07/02/17 [History] Ciprofloxacin HCl [Cipro] 500 mg PO Q12HR 07/02/17 [History] metroNIDAZOLE [Flagyl] 500 mg PO Q8H 07/02/17 [History] HYDROcodone/APAP 5-325MG [Decherd 5-325] 1 tab PO Q8H PRN #15 tab 07/04/17 [Rx] Ondansetron [Zofran] 4 mg PO Q8HR PRN #20 tab 07/04/17 [Rx] Follow up Appointment(s)/Referral(s): Howard Mathews MD [Primary Care Provider] - 1 Week (office closed please call on Friday to schedule an appointment) Leia Ivy MD [STAFF PHYSICIAN] - 07/30/17 4:00 pm Patient Instructions/Handouts: Diverticulitis (DC), Diverticulitis Diet (DC) Discharge Disposition: HOME SELF-CARE
== END 2017-07-04 15:15 | disposition home or self-care (01) | DRG 392 ==
LOC: EC 15:00 → 6PED 16:18 → 3SUR 16:47
PROVIDERS: ADMIT Internal Medicine; ATTEND Internal Medicine
DX: K57.32 Diverticulitis of large intestine without perforation or abscess without bleeding (principal); I10 Essential (primary) hypertension; E78.5 Hyperlipidemia, unspecified; J45.20 Mild intermittent asthma, uncomplicated; K21.9 Gastro-esophageal reflux disease without esophagitis; Z92.21 Personal history of antineoplastic chemotherapy; Z80.8 Family history of malignant neoplasm of other organs or systems; Z80.1 Family history of malignant neoplasm of trachea, bronchus and lung; Z79.899 Other long term (current) drug therapy; Z85.820 Personal history of malignant melanoma of skin; Z85.3 Personal history of malignant neoplasm of breast; Z90.710 Acquired absence of both cervix and uterus; Z92.3 Personal history of irradiation; Z79.811 Long term (current) use of aromatase inhibitors
CPT/HCPCS: 36415; 74177; 80053; 81001; 82150; 83605; 83690; 85025; 85610; 85730; 87040; 96361; 96365; 96375; 99285

== ENCOUNTER 2017-09-05 09:19 | Day surgery (SDC) | payer MEDICAID ==
[2017-09-03 11:07] VITALS: BMI 29.7
[2017-09-05] MEDS: LACTATED RINGERS 1,000 ML IV SCH ×2 (09:34→10:17)
[2017-09-05 09:39] VITALS: TEMP 97.7
[2017-09-05] MEDS ORDERED: PROPOFOL 10 MG/ML 20 ML VIAL IV ONE (10:20)
--- NOTE | 2017-09-05 10:42 | P.PCN ---
Date of Procedure: 09/05/17 Procedure(s) Performed: BRIEF HISTORY: Patient is a 51-year-old pleasant white female, scheduled for an elective colonoscopy as a part of evaluation ofrecent episode of acute sigmoid diverticulitis and was hospitalized 3 months ago. PROCEDURE PERFORMED: Colonoscopy. PREOPERATIVE DIAGNOSIS: recent episode of acute sigmoid diverticulitis 3 months ago. IV sedation per Anesthesia. PROCEDURE: After informed consent was obtained, the patient, was brought into the endoscopy unit. IV sedation was administered by Anesthesia under continuous monitoring. Digital rectal examination was normal. Initially the Olympus CF- 160 flexible video colonoscope was then inserted in the rectum, gradually advanced into the cecum without any difficulty. Careful examination was performed as the scope was gradually being withdrawn. Ileocecal valve and the appendiceal orifice were visualized and appeared normal. Prep was excellent. Mucosa of the cecum, ascending colon, transverse colon, descending colon, sigmoid colon, and rectum appeared normal.scattered sigmoid diverticulosis seen. Retroflexion was performed in the rectum and no lesions were seen. The patient tolerated the procedure well. IMPRESSION: Normal-appearing colon from rectum to cecum with no evidence of colorectal neoplasia. Scattered sigmoid diverticulosis. RECOMMENDATIONS: Findings of this examination were discussed with the patient as well as a family. She was advised to be a high-fiber diet, take fiber supplements a regular basis. She can have a repeat screening colonoscopy in 10 years..
[2017-09-05 10:51] VITALS: RESP 18
[2017-09-05 11:25] VITALS: BP 127/84; PULSE 74
== END 2017-09-05 11:27 | disposition home or self-care (01) ==
LOC: ORWHC2ENDO 09:19
PROVIDERS: ATTEND Internal Medicine Gastroenterology
DX: K57.30 Diverticulosis of large intestine without perforation or abscess without bleeding (principal); I10 Essential (primary) hypertension; E78.5 Hyperlipidemia, unspecified; J45.909 Unspecified asthma, uncomplicated; K21.9 Gastro-esophageal reflux disease without esophagitis; C50.911 Malignant neoplasm of unspecified site of right female breast; Z79.811 Long term (current) use of aromatase inhibitors; Z79.899 Other long term (current) drug therapy
CPT/HCPCS: 45378; J2704

== ENCOUNTER → 2018-03-18 | Outpatient (CLI) | payer MEDICAID ==
--- NOTE | 2018-03-18 14:03 | MM ---
Reason for exam: additional evaluation requested from prior study. Last mammogram was performed 1 year ago. History: Patient is postmenopausal, has history of breast cancer at age 50, and has history of other cancer at age 28. Family history of breast cancer in maternal aunt. Malignant MG pre op needle loc RT of the right breast, March 22, 2016. Malignant US biopsy breast VAD RT of the right breast, March 08, 2016. Lumpectomy of the right breast, 2016. Chemotherapy, 2016. Radiation therapy, 2016. Taking antineoplastic beginning at age 51. Physical Findings: Nurse did not find any significant physical abnormalities on exam. MG 3D Diag Mammo W/Cad REBECCA Bilateral CC and MLO view(s) were taken. Prior study comparison: March 21, 2017, bilateral MG 3d diag mammo w/cad REBECCA. March 08, 2016, right breast MG diagnostic mammo RT wo CAD. The breast tissue is heterogeneously dense. This may lower the sensitivity of mammography. Stable left retroareolar focal asymmetry. No suspicious abnormality. Post therapy change on the right breast. These results were verbally communicated with the patient and result sheet given to the patient on 03/18/18. ASSESSMENT: Benign, BI-RAD 2 RECOMMENDATION: Follow-up diagnostic mammogram of both breasts in 1 year.
== END | disposition home or self-care (01) ==
LOC: RADMAMWWP 08:10
PROVIDERS: ATTEND Radiology Radiation Oncology
DX: Z08 Encounter for follow-up examination after completed treatment for malignant neoplasm (principal); Z85.3 Personal history of malignant neoplasm of breast
CPT/HCPCS: 77062; 77066

== ENCOUNTER → 2018-06-05 | Outpatient (CLI) | payer MEDICAID ==
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
== END | disposition home or self-care (01) ==
LOC: RADUSWWP 06:48
PROVIDERS: ATTEND Internal Medicine Hematology & Oncology
DX: R19.00 Intra-abdominal and pelvic swelling, mass and lump, unspecified site (principal); C50.411 Malignant neoplasm of upper-outer quadrant of right female breast
CPT/HCPCS: 76700

== ENCOUNTER → 2018-11-24 | Outpatient (CLI) | payer MEDICAID ==
--- NOTE | 2018-11-24 13:06 | BD ---
EXAMINATION TYPE: Axial Bone Density DATE OF EXAM: 11/24/2018 COMPARISON: 2017 CLINICAL HISTORY: Height: 65.75 Weight: 187 FRAX RISK QUESTIONS: Alcohol (3 or more units per day): no Family History (Parent hip fracture): no Glucocorticoids (More than 3mos): no (Ex: prednisone, prednisolone, methylprednisolone, dexamethasone, and hydrocortisone). History of Fracture in Adulthood: no Secondary Osteoporosis: 1. Type 1 Diabetes: no 2. Hyperthyroidism: no 3. Menopause before 45: yes 4. Malnutrition: no 5. Chronic liver disease: no Rheumatoid Arthritis: no Current Tobacco Use: no RISK FACTORS HISTORY OF: Family History of Osteoporosis: no Active: yes Diet low in dairy products/other sources of calcium: no Postmenopausal woman: yes Take estrogen and/or progesterone medications: no Lost more than 2 inches in height since high school: no Frequent falls: no Poor Health: no Hyperparathyroidism: no Adrenal Insufficiency: no MEDICATIONS: Prednisone or other steroids: no Thyroid Medications: no Osteoporosis Medications: no Additional Medications: Anastrozole Additional History: Breast CA 2016(radiation/chemo) EXAM MEASUREMENTS: Bone mineral densitometry was performed using the NPM System. Bone mineral density as measured about the Lumbar spine is: ----- L1-L4(G/cm2): 1.346 T Score Values are as follows: ----- L2: 1.2 ----- L3: 1.9 ----- L4: 2.0 ----- L1-L4: 1.4 Bone mineral density has: Decreased -3.1% since study of: 11/07/2016 Bone mineral density about the R hip (g/cm2): 1.062 Bone mineral density about the L hip (g/cm2): 1.107 T Score values are as follows: -----R Neck: 0.2 -----L Neck: 0.5 -----R Total: 0.5 -----L Total: 1.0 Bone mineral density has: Decreased -4.3% since study of: 11/07/2016 IMPRESSION: No evidence for osteoporosis or osteopenia. NOTE: T-SCORE=SD OF THE YOUNG ADULT MEAN.
== END | disposition home or self-care (01) ==
LOC: RADBDWWP 08:33
PROVIDERS: ATTEND Internal Medicine Hematology & Oncology
DX: N95.1 Menopausal and female climacteric states (principal); C50.411 Malignant neoplasm of upper-outer quadrant of right female breast; Z79.890 Hormone replacement therapy
CPT/HCPCS: 77080

== ENCOUNTER → 2018-12-01 | Outpatient (CLI) | payer MEDICAID ==
--- NOTE | 2018-12-01 16:00 | NM ---
EXAMINATION TYPE: NM bone scan whole body DATE OF EXAM: 12/01/2018 COMPARISON: NONE HISTORY: Breast cancer with bone pain Delayed whole-body scanning was performed following the injection of 23.4 mCi Tc 99m MDP. Images acq uired 4.5 hours post injection. FINDINGS: There is faint intensity uptake involving L5-S1 on the left. There is faint uptake throughout the mid and lower thoracic vertebral column. Abnormal uptake involving the lower cervical spine on the left. This appears a faint intensity. There is a lucent defect involving the greater trochanter of the right hip. Faint uptake involving the knees, ankles and feet likely post arthritic. Abnormal uptake involving th e right nasal bone and maxilla likely benign. IMPRESSION: 1. Nonspecific uptake throughout the vertebral column is most likely degenerative given its faint int ensity. X-ray correlation could BE obtained as clinically warranted. 2. There is a round circumscribed lucent defect involving the greater trochanter of the greater troch anter of the right hip. X-ray correlation recommended.
== END ==
LOC: RADNMMAIN 09:53
PROVIDERS: ATTEND Internal Medicine Hematology & Oncology
DX: C50.411 Malignant neoplasm of upper-outer quadrant of right female breast (principal); M89.9 Disorder of bone, unspecified
CPT/HCPCS: 78306; A9503

== ENCOUNTER → 2018-12-10 | Outpatient (CLI) | payer MEDICAID ==
--- NOTE | 2018-12-10 12:11 | XR ---
Right hip HISTORY: Abnormal bone scan Correlation to bone scan 12/01/2017 2 views of the right hip Mild osteoarthritic changes are present with marginal spurring. Alignment is maintained. Questionable lucency at the greater trochanter, there is no cortical destruction. IMPRESSION: Findings could possibly represent normal variant. Hip MRI would be of increased sensitivi ty and specificity. There is no fracture or dislocation.
== END | disposition home or self-care (01) ==
LOC: RADXRMAIN 09:36
PROVIDERS: ATTEND Internal Medicine Hematology & Oncology
DX: M25.551 Pain in right hip (principal)
CPT/HCPCS: 73502

== ENCOUNTER → 2018-12-30 | Outpatient (CLI) | payer MEDICAID ==
--- NOTE | 2018-12-30 10:53 | MR ---
EXAMINATION TYPE: MR pelvis wo/w con DATE OF EXAM: 12/30/2018 COMPARISON: Right hip x-ray December 10, 2018. Nuclear medicine bone scan December 01, 2018 HISTORY: Breast CA /R hip lucency on xray CONTRAST: Standard multiplanar, multisequence MRI departmental protocol utilizing 8.5 mL intravenous Gadavist g adolinium contrast. Imaging is performed of the pelvis focusing on the right hip. FINDINGS: Bone marrow signal intensity throughout the pelvis including area of clinical concern right hip is felt within normal limits. There is some overall heterogeneity consistent with red marrow rec onversion. There is no suspicious abnormal T1 or T2 signal at area of bone scan concern greater troch anter region of right hip. No suspicious enhancement is present at this level. There is incidental mild to moderate increased fluid signal at level of greater trochanter with attac hment at level of muscular attachment. Moderate acute greater trochanteric bursitis is felt present g iven findings. Bladder is poorly distended otherwise felt within normal limits. No bowel dilatation is seen. Uterus is surgically absent or markedly atrophic. No pelvic fluid is noted. No suspicious groin hernia or adenopathy. Muscle bulk bilateral thighs is felt within normal limits. There is slightly less prominent left-sided trochanteric bursitis felt present with some increased fl uid signal noted. IMPRESSION: No suspicious osseous lesion to correspond to bone scan subtle finding. MRI findings correlate with p shilo film. No osseous metastatic disease is felt present. Suspect mild to moderate right greater than left trochanteric bursitis. Correlate clinically.
== END ==
LOC: RADMRIMAIN 06:06
PROVIDERS: ATTEND Radiology Radiation Oncology
DX: C50.411 Malignant neoplasm of upper-outer quadrant of right female breast (principal); Z17.0 Estrogen receptor positive status [ER+]
CPT/HCPCS: 72197; A9585

== ENCOUNTER → 2019-04-22 | Outpatient (CLI) | payer MEDICAID ==
--- NOTE | 2019-04-22 10:47 | MM ---
Reason for exam: additional evaluation requested from prior study. Last mammogram was performed 1 year and 1 month ago. History: Patient is postmenopausal, has history of breast cancer at age 50, and has history of other cancer at age 28. Family history of breast cancer in maternal aunt. Malignant MG pre op needle loc RT of the right breast, March 22, 2016. Malignant US biopsy breast VAD RT of the right breast, March 08, 2016. Lumpectomy of the right breast, 2015. Chemotherapy, 2016. Radiation therapy, 2016. Taking antineoplastic beginning at age 51. Physical Findings: Nurse did not find any significant physical abnormalities on exam. MG 3D Diag Mammo W/Cad REBECAC Bilateral CC and MLO view(s) were taken. XCCL view(s) were taken of the right breast. Prior study comparison: March 18, 2018, bilateral MG 3d diag mammo w/cad REBECCA. March 21, 2017, bilateral MG 3d diag mammo w/cad REBECCA. The breast tissue is heterogeneously dense. This may lower the sensitivity of mammography. Right post therapy change, adjacent lymph node is smaller. Left inverted nipple is chronic. These results were verbally communicated with the patient and result sheet given to the patient on 04/22/19. ASSESSMENT: Benign, BI-RAD 2 RECOMMENDATION: Follow-up diagnostic mammogram of both breasts in 1 year.
== END | disposition home or self-care (01) ==
LOC: RADMAMWWP 09:21
PROVIDERS: ATTEND Radiology Radiation Oncology
DX: C50.411 Malignant neoplasm of upper-outer quadrant of right female breast (principal); Z17.0 Estrogen receptor positive status [ER+]
CPT/HCPCS: 77062; 77066

== ENCOUNTER → 2020-07-24 | Outpatient (CLI) | payer MEDICAID ==
--- NOTE | 2020-07-24 08:18 | MM ---
Reason for exam: additional evaluation requested from prior study. Last mammogram was performed 1 year and 3 months ago. History: Patient is postmenopausal, has history of breast cancer at age 50, and has history of other cancer at age 28. Family history of breast cancer in maternal aunt. Malignant MG pre op needle loc RT of the right breast, March 22, 2016. Malignant US biopsy breast VAD RT of the right breast, March 08, 2016. Lumpectomy of the right breast, 2016. Chemotherapy, 2016. Radiation therapy, 2016. Taking antineoplastic beginning at age 51. Physical Findings: Nurse did not find any significant physical abnormalities on exam. MG 3D Diag Mammo W/Cad REBECCA Bilateral CC and MLO view(s) were taken. Prior study comparison: April 22, 2019, bilateral MG 3d diag mammo w/cad REBECCA. March 18, 2018, bilateral MG 3d diag mammo w/cad REBECCA. The breast tissue is heterogeneously dense. This may lower the sensitivity of mammography. Finding: Architectural distortion in the right breast consistent with known treatment changes. There is no discrete abnormality. These results were verbally communicated with the patient and result sheet given to the patient on 07/24/20. ASSESSMENT: Benign, BI-RAD 2 RECOMMENDATION: Follow-up diagnostic mammogram of both breasts in 1 year.
== END | disposition home or self-care (01) ==
LOC: RADMAMWWP 07:28
PROVIDERS: ATTEND Internal Medicine Hematology & Oncology
DX: Z08 Encounter for follow-up examination after completed treatment for malignant neoplasm (principal); Z85.3 Personal history of malignant neoplasm of breast
CPT/HCPCS: 77062; 77066

== ENCOUNTER → 2021-05-05 | Outpatient (CLI) | payer MEDICAID ==
--- NOTE | 2021-05-05 23:15 | MR ---
EXAMINATION TYPE: MR brain wo/w con DATE OF EXAM: 05/05/2021 COMPARISON: None HISTORY: Dizziness. Breast cancer. CONTRAST: Standard multiplanar, multisequence MRI departmental protocol utilizing 9 mL intravenous gadolinium c ontrast. Ventricles have normal size. There is no mass effect nor midline shift. There is no sign of intracran ial hemorrhage. There is 1.5 x 1 cm area of increased signal in the right parietal lobe white matter on the T2 and FLAIR images consistent with an infarct. The corpus callosum is intact. The brainstem is intact. There is no evidence of posterior fossa mass. There is normal enhancement of the venous sinuses. There is no pathologic enhancement. Sella turcica appears normal. There is no evidence of orbital mass. 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 No acute intracranial abnormality. No evidence of metastatic dise ase.
== END | disposition home or self-care (01) ==
LOC: RADMRIMAIN 10:38
PROVIDERS: ATTEND Internal Medicine Hematology & Oncology
DX: C50.919 Malignant neoplasm of unspecified site of unspecified female breast (principal); I63.9 Cerebral infarction, unspecified
CPT/HCPCS: 70553; A9585

== ENCOUNTER → 2021-07-03 | Outpatient (CLI) | payer MEDICAID ==
--- NOTE | 2021-07-03 15:32 | US ---
EXAMINATION TYPE: US carotid duplex BILAT DATE OF EXAM: 07/03/2021 COMPARISON: MRI CLINICAL HISTORY: G45.9 TIA. Pt states dizzy episodes EXAM MEASUREMENTS: RIGHT: Peak Systolic Velocity (PSV) cm/sec ----- Right CCA: 72.0 ----- Right ICA: 106 ----- Right ECA: 66.0 ICA/CCA ratio: 1.5 RIGHT: End Diastole cm/sec ----- Right CCA: 31.2 ----- Right ICA: 48.6 ----- Right ECA: 15.6 LEFT: Peak Systolic Velocity (PSV) cm/sec ----- Left CCA: 75.3 ----- Left ICA: 93.6 ----- Left ECA: 68.3 ICA/CCA ratio: 1.2 LEFT: End Diastole cm/sec ----- Left CCA: 27.4 ----- Left ICA: 61.8 ----- Left ECA: 17.7 VERTEBRALS (direction of flow): Right Vertebral: Antegrade Left Vertebral: Antegrade Rhythm: Normal No significant stenosis seen Grayscale images show no significant focal plaque. Velocity measurements within normal limits bilater ally. IMPRESSION: No hemodynamically significant stenosis seen in either internal carotid artery. Criteria for Assigning % of Stenosis / Diameter reduction (Estimation based on the indirect measurements of the internal carotid artery velocities (ICA PSV). 1. Normal (no stenosis)=ICA PSV < 125 cm/s: ratio < 2.0: ICA EDV<40 cm/s. 2. Less than 50% stenosis=ICA PSV < 125 cm/s: ratio < 2.0: ICA EDV<40 cm/s. 3. 50 to 69% stenosis=ICA PSV of 125 to 230 cm/s: ration 2.0 ? 4.0: ICA EDV 40-100 cm/s. 4. Greater than 70% stenosis to near occlusion= ICA PSV > 230 cm/s: ratio > 4.0: ICA EDV > 100 cm/s. 5. Near occlusion= ICA PSV velocities may be low or undetectable: variable ratio and ICA EDV. 6. Total occlusion=unable to detect flow.
== END | disposition home or self-care (01) ==
LOC: RADUSWWP 14:15
PROVIDERS: ATTEND Internal Medicine Geriatric Medicine
DX: R42 Dizziness and giddiness (principal)
CPT/HCPCS: 93880

== ENCOUNTER → 2021-07-06 | Outpatient (CLI) | payer MEDICAID ==
--- NOTE | 2021-07-06 11:58 | ECHOF ---
Referral Reason:I34.0 MEASUREMENTS -------- HEIGHT: 170.2 cm WEIGHT: 86.2 kg BP: RVIDd: 3.2 cm (< 3.3) IVSd: 1.2 cm (0.6 - 1.1) LVIDd: 4.2 cm (3.9 - 5.3) LVPWd: 1.2 cm (0.6 - 1.1) IVSs: 1.9 cm LVIDs: 2.7 cm LVPWs: 1.5 cm LA Diam: 3.7 cm (2.7 - 3.8) LAESV Index (A-L): 20.08 ml/m Ao Diam: 3.7 cm (2.0 - 3.7) AV Cusp: 2.1 cm (1.5 - 2.6) MV EXCURSION: 15.965 mm (> 18.000) MV EF SLOPE: 75 mm/s (70 - 150) EPSS: 0.3 cm MV E Josh: 0.96 m/s MV DecT: 204 ms MV A Josh: 0.73 m/s MV E/A Ratio: 1.31 FINDINGS -------- Sinus rhythm. This was a technically adequate study. The left ventricular size is normal. There is borderline concentric left ventricular hypertrophy. Overall left ventricular systolic function is normal with, an EF between 60 - 65 %. The right ventricle is mildly enlarged. Normal LA size by volume 22+/-6 ml/m2. The right atrium is normal in size. Interatrial and interventricular septum intact. The aortic valve is trileaflet, and appears structurally normal. No aortic stenosis or regurgitation. The mitral valve is normal. The tricuspid valve appears structurally normal. Unable to estimate RVSP due to inadequate TR jet s pectral doppler profile. There is no pulmonic regurgitation present. The aortic root size is normal. Normal inferior vena cava with normal inspiratory collapse consistent with estimated right atrial pre ssure of 5 mmHg. There is no pericardial effusion. CONCLUSIONS -------- 1. The left ventricular size is normal. 2. There is borderline concentric left ventricular hypertrophy. 3. Overall left ventricular systolic function is normal with, an EF between 60 - 65 %. 4. The right ventricle is mildly enlarged. 5. The aortic valve is trileaflet, and appears structurally normal. No aortic stenosis or regurgitati on. 6. There is no pericardial effusion. SHOE LINING FITTER: Nancy Freeman RDCS
--- NOTE | 2021-07-06 15:28 | NM ---
EXAMINATION TYPE: NM bone scan whole body DATE OF EXAM: 07/06/2021 COMPARISON: NONE HISTORY: C50.411 Malignant neoplasm right breast Delayed whole-body scanning was performed following the injection of 21.5 mCi Tc 99m MDP. Images acq uired 3 hours post injection. FINDINGS: Mild uptake noted at the lower lumbar and cervical spine is likely degenerative. Soft tissue uptake i s normal. Uptake along the greater trochanters could be due to trochanteric bursitis. Uptake within t he feet, knees, wrists, hands, elbows, shoulders, sternoclavicular joints is likely degenerative. IMPRESSION: No evidence of metastatic disease.
== END | disposition home or self-care (01) ==
LOC: RADNMMAIN 10:01
PROVIDERS: ATTEND Internal Medicine Hematology & Oncology
DX: C50.411 Malignant neoplasm of upper-outer quadrant of right female breast (principal); I51.7 Cardiomegaly
CPT/HCPCS: 93306; 78306; A9503

== ENCOUNTER → 2021-08-07 | Outpatient (CLI) | payer MEDICAID ==
--- NOTE | 2021-08-07 17:44 | BD ---
EXAMINATION TYPE: Axial Bone Density DATE OF EXAM: 08/07/2021 COMPARISON: NONE CLINICAL HISTORY: Z78.0 Post menopausal w/o HRT Height: 5 FT 6 IN Weight: 202 FRAX RISK QUESTIONS: Alcohol (3 or more units per day): NO Family History (Parent hip fracture): NO Glucocorticoids (More than 3mos): NO (Ex: prednisone, prednisolone, methylprednisolone, dexamethasone, and hydrocortisone). History of Fracture in Adulthood: NO Secondary Osteoporosis: 1. Type 1 Diabetes: NO 2. Hyperthyroidism: NO 3. Menopause before 45: YES 4. Malnutrition: NO 5. Chronic liver disease: NO Rheumatoid Arthritis: NO Current Tobacco Use: NO RISK FACTORS HISTORY OF: Surgery to Spine/Hip(right/left)/Wrist (right/left): NO Family History of Osteoporosis: NO Active: YES Diet low in dairy products/other sources of calcium: NO Postmenopausal woman: YES Take estrogen and/or progesterone medications: NO Lost more than 2 inches in height since high school: NO Frequent falls: NO Poor Health: GOOD Hyperparathyroidism: NO Adrenal Insufficiency: NO MEDICATIONS: Additional Medications: HYDROCHLORTHIAZIDE, SIMVASTATIN,, ANASTROZOLE,BLOOD PRESSURE,VIT D,SINGULAIR Additional History: BREAST CANCER 2016 EXAM MEASUREMENTS: Bone mineral densitometry was performed using the [employer] System. Bone mineral density as measured about the Lumbar spine is: ----- L1-L4(G/cm2): 1.401 T Score Values are as follows: ----- L2: 2.0 ----- L3: 1.7 ----- L4: 2.6 ----- L1-L4: 1.8 Bone mineral density has: INCREASED 3.5 % since study of: 2019 Bone mineral density about the R hip (g/cm2): 1.039 Bone mineral density about the L hip (g/cm2): 1.095 T Score values are as follows: -----R Neck: 0.0 -----L Neck: 0.4 -----R Total: 0.6 -----L Total: 1.2 Bone mineral density has: INCREASED 1.2 % since study of: 2019 IMPRESSION: Normal (Values between +1 and -1 indicate normal bone mass). Consider repeating this study in 5 year s or sooner if there is some new clinical indication. NOTE: T-SCORE=SD OF THE YOUNG ADULT MEAN.
--- NOTE | 2021-08-08 10:08 | MM ---
Reason for exam: additional evaluation requested from prior study. Last mammogram was performed 1 year ago. History: Patient is postmenopausal, has history of breast cancer at age 50, and has history of other cancer at age 28. Family history of breast cancer in maternal aunt. Malignant MG pre op needle loc RT of the right breast, March 22, 2016. Malignant US biopsy breast VAD RT of the right breast, March 08, 2016. Lumpectomy of the right breast, 2016. Chemotherapy, 2016. Radiation therapy, 2016. Taking antineoplastic beginning at age 51. Physical Findings: Nurse did not find any significant physical abnormalities on exam. MG 3D Diag Mammo W/Cad REBECCA Bilateral CC and MLO view(s) were taken. Prior study comparison: July 24, 2020, bilateral MG 3d diag mammo w/cad REBECCA. April 22, 2019, bilateral MG 3d diag mammo w/cad REBECCA. There are scattered fibroglandular densities. No significant new findings when compared with previous films. These results were verbally communicated with the patient and result sheet given to the patient on 08/07/21. ASSESSMENT: Benign, BI-RAD 2 RECOMMENDATION: Follow-up diagnostic mammogram of both breasts in 1 year.
== END | disposition home or self-care (01) ==
LOC: RADMAMWWP 14:56
PROVIDERS: ATTEND Internal Medicine Hematology & Oncology
DX: N64.89 Other specified disorders of breast (principal); Z78.0 Asymptomatic menopausal state; Z85.3 Personal history of malignant neoplasm of breast; Z80.3 Family history of malignant neoplasm of breast
CPT/HCPCS: 77062; 77066; 77080

== ENCOUNTER → 2022-09-05 | Outpatient (CLI) | payer MEDICAID ==
--- NOTE | 2022-09-08 18:47 | MM ---
Reason for Exam: Screening (asymptomatic). Last mammogram was performed 1 year(s) and 1 month(s) ago. Patient History: Menarche at age 12. First Full-Term at age 25. Hysterectomy at age 42. Postmenopausal. Breast cancer, right, age 50. 2016, Lumpectomy on the Right side. 03/22/2016, Malignant Core Biopsy on the right side. 03/08/2016, Malignant Core Biopsy on the right side. 2016, Chemotherapy. 2016, Radiation Therapy. Maternal aunt had breast cancer, age 76. Prior Study Comparison: 04/22/2019 Bilateral Diagnostic Mammogram, [facility]. 07/24/2020 Bilateral Diagnostic Mammogram, [facility]. 08/07/2021 Bilateral Diagnostic Mammogram, [facility]. Tissue Density: There are scattered fibroglandular densities. Findings: Analyzed By CAD. Postsurgical and posttreatment changes right breast. Stable low axillary tail lymph node on the left. Slightly inverted bilateral nipples unchanged. No sniffing change from prior exams. Overall Assessment: Benign, BI-RAD 2 Management: Screening Mammogram of both breasts in 1 year. 1. Patient should continue monthly self breast exams. 2. A clinical breast exam by your physician is recommended on an annual basis. 3. This exam should not preclude additional follow-up of suspicious palpable abnormalities. Electronically signed and approved by: Ryan Mohamud M.D. Radiologist
== END | disposition home or self-care (01) ==
LOC: RADMAMWWP 15:58
PROVIDERS: ATTEND Internal Medicine Geriatric Medicine
DX: Z12.31 Encounter for screening mammogram for malignant neoplasm of breast (principal); Z78.0 Asymptomatic menopausal state; Z80.3 Family history of malignant neoplasm of breast; Z85.3 Personal history of malignant neoplasm of breast
CPT/HCPCS: 77063; 77067

== ENCOUNTER → 2022-09-09 | Outpatient (CLI) | payer MEDICAID ==
[2022-09-09 14:33] LABS: Basophils # (A) 0.03 X 10*3/uL (0.00-0.10); Basophils % (A) 0.4 %; Eosinophils # (A) 0.08 X 10*3/uL (0.04-0.35); Eosinophils % (A) 1.2 %; HCT 40.2 % (37.2-46.3); HGB 12.8 g/dL (12.0-15.0); Immature Grans, Automated 0.3 %; Lymphocytes # (A) 1.91 X 10*3/uL (0.90-5.00); Lymphocytes % (A) 28.2 %; MCH 28.6 pg (27.0-32.0); MCHC 31.8 g/dL (32.0-37.0); MCV 89.9 fL (80.0-97.0); Mean Platelet Volume 10.8 fL (9.5-12.2); Monocytes # (A) 0.61 X 10*3/uL (0.20-1.00); NRBC Per 100 WBC 0 /100 WBCS (0.0-0.0); Neutrophils # (A) 4.12 X 10*3/uL (1.80-7.70); Neutrophils % (A) 60.9 %; Platelet Count 340 X 10*3/uL (140-440); RBC 4.47 X 10*6/uL (4.10-5.20); RDW 12.8 % (11.5-14.5); WBC 6.77 X 10*3/uL (4.50-10.00)
[2022-09-09 16:24] LABS: ALT 12 U/L (8-44); AST 14 U/L (13-35); Albumin 4.3 g/dL (3.8-4.9); Albumin/Globulin Ratio 1.93 (1.60-3.17); Alkaline Phosphatase 94 U/L (41-126); BUN/Creat Ratio 29.94 Ratio (12.00-20.00); Blood Urea Nitrogen 21.2 mg/dL (9.0-27.0); Carbon Dioxide 29.4 mmol/L (20.0-27.5); Chloride 103 mmol/L (96-109); Chol/HDL Ratio 2.35 Ratio; Globulin 2.3 g/dL (1.6-3.3); Glucose 102 mg/dL (70-110); LDL Cholesterol,Calculated 88.5 mg/dL (0.0-131.0); Non-African American GFR(CKD) 94.9 (60.0-200.0); Potassium 4.6 mmol/L (3.5-5.5); Sodium 142 mmol/L (135-145); Total Protein 6.6 g/dL (6.2-8.2); VLDL Calculation 13.62 mg/dL (5.00-40.00)
== END | disposition home or self-care (01) ==
LOC: LABWHC1 08:16
PROVIDERS: ATTEND Nurse Practitioner Family
DX: E07.9 Disorder of thyroid, unspecified (principal); E78.5 Hyperlipidemia, unspecified; R73.9 Hyperglycemia, unspecified
CPT/HCPCS: 36415; 80053; 80061; 83036; 84439; 84443; 85025

== ENCOUNTER 2023-02-03 12:02 | Emergency (ER) | payer MEDICAID ==
[2023-02-03] MEDS ORDERED: METOCLOPRAMIDE 5 MG/ML 2 ML VIAL IVP STA (12:27)
[2023-02-03] MEDS ORDERED: MECLIZINE 12.5 MG TAB PO STA (12:27)
--- NOTE | 2023-02-03 12:30 | ED ---
General Adult HPI - General Chief complaint: Dizziness Stated complaint: High BP, Nausea Time Seen by Provider: 02/03/23 12:11 Source: patient, RN notes reviewed Mode of arrival: wheelchair Limitations: no limitations - History of Present Illness Initial comments: Patient is a pleasant 57-year-old female presenting to the emergency department with dizziness. Onset of symptoms was around 11:00. Symptoms have persisted. Patient does have nausea. Dizziness feels like a spinning sensation. Onset was sudden. Patient does have history of similar symptoms previously with reported normal MRI. Patient states this seems to be lasting longer than normal. Symptoms are positional. No confusion. No speech problems. No weakness. No headache. Patient did take her blood pressure at home with a systolic 175. - Related Data Home Medications Medication Instructions Recorded Confirmed Montelukast [Singulair] 10 mg PO HS 03/19/16 02/03/23 hydroCHLOROthiazide [Hydrodiuril] 25 mg PO QAM 03/19/16 02/03/23 Rosuvastatin Calcium 10 mg PO DAILY 02/03/23 02/03/23 lisinopriL [Zestril] 20 mg PO DAILY 02/03/23 02/03/23 Allergies Allergy/AdvReac Type Severity Reaction Status Date / Time No Known Allergies Allergy Verified 02/03/23 13:47 Review of Systems ROS Statement: Those systems with pertinent positive or pertinent negative responses have been documented in the HPI. ROS Other: All systems not noted in ROS Statement are negative. Constitutional: Denies: fever Eyes: Denies: eye pain ENT: Denies: ear pain Respiratory: Denies: cough, dyspnea Cardiovascular: Denies: chest pain Endocrine: Denies: fatigue Gastrointestinal: Denies: abdominal pain Genitourinary: Denies: dysuria Musculoskeletal: Denies: back pain Skin: Denies: rash Neurological: Reports: as per HPI, vertigo. 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 diverticulitis, History of Any Multi-Drug Resistant Organisms: None Reported Past Surgical History: Breast Surgery, Hysterectomy, Tubal Ligation Additional Past Surgical History / Comment(s): D & C, RIGHT BREAST biopsy, rt breast lumpectomy Past Anesthesia/Blood Transfusion Reactions: No Reported Reaction Past Psychological History: No Psychological Hx Reported Past Alcohol Use History: Occasional Past Drug Use History: None Reported - Past Family History Mother Family Medical History: No Reported History Additional Family Medical History / Comment(s): . Father Family Medical History: Hypertension General Exam Limitations: no limitations General appearance: alert, in no apparent distress Head exam: Present: atraumatic Eye exam: Present: normal appearance, PERRL, EOMI, nystagmus ENT exam: Present: normal oropharynx Neck exam: Present: normal inspection Respiratory exam: Present: normal lung sounds bilaterally Cardiovascular Exam: Present: regular rate, normal rhythm GI/Abdominal exam: Present: soft. Absent: tenderness Extremities exam: Present: normal inspection Neurological exam: Present: alert, oriented X3, CN II-XII intact. Absent: motor sensory deficit Expanded Neurological exam: Present: protecting the airway Speech: Present: fluid speech Cranial nerves: EOM's Intact: Normal, Facial Sensation: Normal Sensory exam: Upper Extremity Light Touch: Normal, Lower Extremity Light Touch: Normal Motor strength exam: RUE: 5, LUE: 5, RLE: 5, LLE: 5 Eye Response: (4) open spontaneously Motor Response: (6) obeys commands Verbal Response: (5) oriented Psychiatric exam: Present: normal affect, normal mood Skin exam: Present: normal color Course Vital Signs 02/03/23 02/03/23 02/03/23 12:05 12:59 14:11 Temperature 97.6 F Pulse Rate 94 74 79 Respiratory 18 16 18 Rate Blood Pressure 165/114 141/103 136/101 O2 Sat by Pulse 99 99 99 Oximetry 02/03/23 15:15 Temperature Pulse Rate 85 Respiratory 20 Rate Blood Pressure 131/84 O2 Sat by Pulse 98 Oximetry EKG Findings - EKG Results: EKG: interpreted by ERMD (Right axis. Incomplete right bundle-branch block.), sinus rhythm, normal ST/T Medical Decision Making - Medical Decision Making Was pt. sent in by a medical professional or institution (, PA, CERTIFIED ADAPTED PHYSICAL EDUCATOR, urgent care, hospital, or halfway...) When possible be specific @ -No Did you speak to anyone other than the patient for history (EMS, parent, family, police, friend...)? What history was obtained from this source @ -Family is present and helps to confirm history Did you review nursing and triage notes (agree or disagree)? Why? @ -I reviewed and agree with nursing and triage notes Were old charts reviewed (outside hosp., previous admission, EMS record, old EKG, old radiological studies, urgent care reports/EKG's, halfway records)? Report findings @ -No old charts were reviewed Differential Diagnosis (chest pain, altered mental status, abdominal pain women, abdominal pain men, vaginal bleeding, weakness, fever, dyspnea, syncope, headache, dizziness, GI bleed, back pain, seizure, CVA, palpatations, mental health)? @ -Differential Dizziness: Benign paroxysmal positional Vertigo, Menieres disease, otitis media, acoustic neuroma, vertebrobasilar insufficiency, cerebellar stroke, encephalitis, hypovolemic, arrhythmia, coronary artery syndrome, anemia, this is not meant to be an all-inclusive list EKG interpreted by me (3pts min.). @ -As above X-rays interpreted by me (1pt min.). @ -None done CT interpreted by me (1pt min.). @ -None done U/S interpreted by me (1pt. min.). @ -None done What testing was considered but not performed or refused? (CT, X-rays, U/S, labs)? Why? @ -None What meds were considered but not given or refused? Why? @ -None Did you discuss the management of the patient with other professionals (professionals i.e. , PA, CERTIFIED ADAPTED PHYSICAL EDUCATOR, lab, RT, psych nurse, social human services assistants, skiving machine operator, teacher, safety and security officer, pillowcase folder)? Give summary @ -No Was smoking cessation discussed for >3mins.? @ -No Was critical care preformed (if so, how long)? @ -No Were there social determinants of health that impacted care today? How? (Homelessness, low income, unemployed, alcoholism, drug addiction, transportation, low edu. Level, literacy, decrease access to med. care, half-way, rehab)? @ -No Was there de-escalation of care discussed even if they declined (Discuss DNR or withdrawal of care, Hospice)? DNR status @ -No What co-morbidities impacted this encounter? (DM, HTN, Smoking, COPD, CAD, Cancer, CVA, ARF, Chemo, Hep., AIDS, mental health diagnosis, sleep apnea, morbid obesity)? @ -None Was patient admitted / discharged? Hospital course, mention meds given and route, prescriptions, significant lab abnormalities, going to OR and other pertinent info. @ -Patient reevaluated and is feeling better. Dizziness has resolved. Patient is able to get up and and really without difficulty. Blood pressure is improved. Undiagnosed new problem with uncertain prognosis? @ -No Drug Therapy requiring intensive monitoring for toxicity (Heparin, Nitro, Insulin, Cardizem)? @ -No Were any procedures done? @ -No Diagnosis/symptom? @ -Vertigo Acute, or Chronic, or Acute on Chronic? @ -Acute Uncomplicated (without systemic symptoms) or Complicated (systemic symptoms)? @ -default Side effects of treatment? @ -No Exacerbation, Progression, or Severe Exacerbation? @ -No Poses a threat to life or bodily function? How? (Chest pain, [place], [place], pneumonia, PE, COPD, DKA, ARF, appy, cholecystitis, CVA, Diverticulitis, Homicidal, Suicidal, threat to staff... and all critical care pts) @ -No - Lab Data Result diagrams: 02/03/23 12:39 02/03/23 12:39 Lab Results 02/03/23 02/03/23 Range/Units 12:39 12:39 WBC 6.4 (3.8-10.6) k/uL RBC 4.48 (3.80-5.40) m/uL Hgb 13.3 (11.4-16.0) gm/dL Hct 39.6 (34.0-46.0) % MCV 88.5 (80.0-100.0) fL MCH 29.7 (25.0-35.0) pg MCHC 33.6 (31.0-37.0) g/dL RDW 12.8 (11.5-15.5) % Plt Count 297 (150-450) k/uL MPV 7.8 Neutrophils % 54 % Lymphocytes % 32 % Monocytes % 9 % Eosinophils % 2 % Basophils % 0 % Neutrophils # 3.4 (1.3-7.7) k/uL Lymphocytes # 2.1 (1.0-4.8) k/uL Monocytes # 0.6 (0-1.0) k/uL Eosinophils # 0.1 (0-0.7) k/uL Basophils # 0.0 (0-0.2) k/uL Sodium 137 (137-145) mmol/L Potassium 4.3 (3.5-5.1) mmol/L Chloride 103 (98-107) mmol/L Carbon Dioxide 27 (22-30) mmol/L Anion Gap 7 mmol/L BUN 17 (7-17) mg/dL Creatinine 0.54 (0.52-1.04) mg/dL Est GFR (CKD-EPI)AfAm >90 (>60 ml/min/1.73 sqM) Est GFR (CKD-EPI)NonAf >90 (>60 ml/min/1.73 sqM) Glucose 105 H (74-99) mg/dL Calcium 9.4 (8.4-10.2) mg/dL Total Bilirubin 0.7 (0.2-1.3) mg/dL AST 24 (14-36) U/L ALT 18 (4-34) U/L Alkaline Phosphatase 87 (38-126) U/L Total Protein 6.9 (6.3-8.2) g/dL Albumin 4.0 (3.5-5.0) g/dL Disposition Clinical Impression: Vertigo Disposition: HOME SELF-CARE Condition: Stable Instructions (If sedation given, give patient instructions): Dizziness (ED) Additional Instructions: Please do follow-up with primary care physician in the next day or 2 for recheck . [id number] Antivert as needed. Return for increased dizziness, weakness, difficulty walking, vomiting, worsening symptoms or other concerns. Is patient prescribed a controlled substance at d/c from ED?: No Referrals: Howard Mathews MD [Primary Care Provider] - 1-2 days Time of Disposition: 15:39
[2023-02-03 12:45] LABS: Basophils % (A) 0 %; Eosinophils # (A) 0.1 k/uL (0-0.7); Eosinophils % (A) 2 %; HCT 39.6 % (34.0-46.0); HGB 13.3 gm/dL (11.4-16.0); Lymphocytes # (A) 2.1 k/uL (1.0-4.8); Lymphocytes % (A) 32 %; MCH 29.7 pg (25.0-35.0); MCHC 33.6 g/dL (31.0-37.0); MCV 88.5 fL (80.0-100.0); Mean Platelet Volume 7.8; Monocytes # (A) 0.6 k/uL (0-1.0); Monocytes % (A) 9 %; Neutrophils # (A) 3.4 k/uL (1.3-7.7); Neutrophils % (A) 54 %; Platelet Count 297 k/uL (150-450); RBC 4.48 m/uL (3.80-5.40); RDW 12.8 % (11.5-15.5); WBC 6.4 k/uL (3.8-10.6)
[2023-02-03 13:01] LABS: ALT 18 U/L (4-34); African American GFR (CKD) >90 (>60 ml/min/1.73 sqM); Anion Gap 7 mmol/L; Blood Urea Nitrogen 17 mg/dL (7-17); Calcium 9.4 mg/dL (8.4-10.2); Carbon Dioxide 27 mmol/L (22-30); Chloride 103 mmol/L (98-107); Glucose 105 mg/dL (74-99); Non-African American GFR(CKD) >90 (>60 ml/min/1.73 sqM); Sodium 137 mmol/L (137-145); Total Bilirubin 0.7 mg/dL (0.2-1.3); Total Protein 6.9 g/dL (6.3-8.2)
[2023-02-03 13:13] LABS: AST 24 U/L (14-36); Alkaline Phosphatase 87 U/L (38-126); Potassium 4.3 mmol/L (3.5-5.1)
[2023-02-03] MEDS ORDERED: hydroCHLOROthiazide 12.5 MG CAP PO STA (14:06)
[2023-02-03 16:07] VITALS: BP 131/82; PULSE 82; RESP 18; TEMP 97.8
== END 2023-02-03 16:02 | disposition home or self-care (01) ==
LOC: EC 12:02
DX: R42 Dizziness and giddiness (principal); J45.909 Unspecified asthma, uncomplicated; E78.5 Hyperlipidemia, unspecified; I10 Essential (primary) hypertension; Z79.899 Other long term (current) drug therapy
CPT/HCPCS: 36415; 93005; 80053; 85025; 99284; 96374; J2765

== ENCOUNTER → 2023-05-29 | Outpatient (CLI) | payer MEDICAID ==
--- NOTE | 2023-05-29 16:07 | US ---
EXAMINATION TYPE: US extremity nonvasculr ltd LT DATE OF EXAM: 05/29/2023 COMPARISON: NONE CLINICAL INDICATION: Female, 57 years old with history of R59.0 ENLARGED LYMPH NODE Z85.820 HX MELANO MA; Physician felt lump at posterior fossa upon physical exam. Pt. 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 Consider MRI to confirm.
== END | disposition home or self-care (01) ==
LOC: RADUSWWP 14:29
PROVIDERS: ATTEND Student in an Organized Health Care Education/Training Program
DX: R59.0 Localized enlarged lymph nodes (principal); Z85.820 Personal history of malignant melanoma of skin

== ENCOUNTER → 2023-09-29 | Outpatient (CLI) | payer MEDICAID ==
--- NOTE | 2023-09-29 09:09 | MM ---
Reason for Exam: Screening (asymptomatic). Last mammogram was performed 1 year(s) and 1 month(s) ago. Patient History: Menarche at age 12. First Full-Term at age 25. Hysterectomy at age 42. Postmenopausal. Breast cancer, right, age 50. 2016, Lumpectomy on the Right side. 03/22/2016, Malignant Core Biopsy on the right side. 03/08/2016, Malignant Core Biopsy on the right side. 2016, Chemotherapy. 2016, Radiation Therapy. Maternal aunt had breast cancer, age 76. Prior Study Comparison: 07/24/2020 Bilateral Diagnostic Mammogram, [facility]. 08/07/2021 Bilateral Diagnostic Mammogram, [facility]. 09/05/2022 Bilateral MG 3D screening mammo w/cad, [facility]. Tissue Density: There are scattered fibroglandular densities. Findings: Analyzed By CAD. Right breast surgical clips. There is no suspicious group of microcalcifications or new suspicious mass. Overall Assessment: Negative, BI-RAD 1 Management: Screening Mammogram of both breasts in [address] [facility] will attempt to contact patient to return for supplemental views and ultrasound if indicated. Patient should continue monthly self-breast exams. A clinical breast exam by your physician is recommended on an annual basis. This exam should not preclude additional follow-up of suspicious palpable abnormalities. Note on Krista scores and lifetime risk: 1. A Krista score greater than 3% is considered moderate risk. If this is the case, consider specialist referral to assess eligibility for a risk reducing agent. 2. If overall lifetime risk for the development of breast cancer is 20% or higher, the patient may qualify for future screening with alternating mammogram and breast MRI. Electronically signed and approved by: Kevin Marrero DO
== END | disposition home or self-care (01) ==
LOC: RADMAMWWP 08:28
PROVIDERS: ATTEND Internal Medicine Geriatric Medicine
DX: Z12.31 Encounter for screening mammogram for malignant neoplasm of breast (principal); Z80.3 Family history of malignant neoplasm of breast; Z78.0 Asymptomatic menopausal state
CPT/HCPCS: 77063; 77067

== ENCOUNTER → 2023-11-27 | Outpatient (CLI) | payer MEDICAID ==
--- NOTE | 2023-12-04 06:12 | EM ---
EVENT MONITOR STUDY: A 72-hour Holter. INDICATIONS: Palpitations. FINDINGS: Underlying rhythm is sinus with an average heart rate of 94 beats per minute, heart rate varied from 63 beats per minute to 150 beats per minute. There were episodes of sinus tachycardia. There were PVCs and PACs noted. There were no episodes of sustained ventricular or supraventricular tachyarrhythmias. CONCLUSIONS: This 72-hour Holter monitor shows sinus rhythm with episodes of sinus tachycardia with a maximum heart rate of 150 beats per minute. MMODL / IJN: [id number] /
== END | disposition home or self-care (01) ==
LOC: RADECHMAIN 08:21
PROVIDERS: ATTEND Internal Medicine Geriatric Medicine
DX: R00.2 Palpitations (principal); R00.0 Tachycardia, unspecified
CPT/HCPCS: 93225; 93226

== ENCOUNTER → 2024-11-17 | Outpatient (CLI) | payer MEDICAID ==
--- NOTE | 2024-11-17 08:03 | MM ---
Reason for Exam: Screening (asymptomatic). Last mammogram was performed 1 year(s) and 2 month(s) ago. Patient History: Menarche at age 12. First Full-Term at age 25. Hysterectomy at age 42. Postmenopausal. Breast cancer, right, age 50. 2016, Lumpectomy on the Right side. 03/22/2016, Malignant Core Biopsy on the right side. 03/08/2016, Malignant Core Biopsy on the right side. 2016, Chemotherapy. 2016, Radiation Therapy. Maternal aunt had breast cancer, age 76. Prior Study Comparison: 08/07/2021 Bilateral Diagnostic Mammogram, [facility]. 09/05/2022 Bilateral MG 3D screening mammo w/cad, [facility]. 09/29/2023 Bilateral MG 3D screening mammo w/cad, [facility]. Tissue Density: The breasts are heterogeneously dense, which may obscure small masses. Findings: Analyzed By CAD. There is no suspicious group of microcalcifications or new suspicious mass in either breast. Postoperative distortion right breast. Overall Assessment: Benign, BI-RAD 2 Management: Screening Mammogram of both breasts in 1 year. . Patient should continue monthly self-breast exams. A clinical breast exam by your physician is recommended on an annual basis. This exam should not preclude additional follow-up of suspicious palpable abnormalities. Note on Krista scores and lifetime risk: 1. A Krista score greater than 3% is considered moderate risk. If this is the case, consider specialist referral to assess eligibility for a risk reducing agent. 2. If overall lifetime risk for the development of breast cancer is 20% or higher, the patient may qualify for future screening with alternating mammogram and breast MRI. [facility], , 11/17/2024 7:59 AM. Electronically signed and approved by: Alfred Anderson M.D. Radiologis
== END | disposition home or self-care (01) ==
LOC: RADMAMWWP 07:37
PROVIDERS: ATTEND Internal Medicine Geriatric Medicine
DX: Z12.31 Encounter for screening mammogram for malignant neoplasm of breast (principal); R92.333 Mammographic heterogeneous density, bilateral breasts; Z78.0 Asymptomatic menopausal state; Z80.3 Family history of malignant neoplasm of breast
CPT/HCPCS: 77063; 77067